=== PATIENT | male | born 1955 | race Caucasian/White ===

== ENCOUNTER 2020-01-02 21:38 | Inpatient (IN) | payer MEDICARE, BC ==
[~2020-01-02] VITALS: Ht 182.9 cm; Wt 118.0 kg
[~2020-01-02 21:38] MED LIST: ACET-2274 PO; ACET1CAP PO; ACET650S7 PR; ALBU0.63 NEB; ALBU2.5V NEB; ASCO-90 PO; DICL100G19 NS; DIPH25TA65 PO; ENOX30DI3 SQ; FAMO20TA7 PO; FLUT16SP24 NS; FLUT1DIS5 IH; FOLI0.8T2 PO; FURO-92 PO; GENT80PI6 NS; HYDR200T72 PO; IBUP-1222 PO; INSU100V5 SQ-INSULIN; IPRA3AMP30 NEB; IPRA3AMP30 NPPB; LANS15CA5 PO; LECI1200 PO; LIDO700A30 TD; LINE600I14 IV; LORA-445 PO; LORA-446 PO; LORA10TA75 PO; METF500T17 PO; OXYC-432 PO; OXYC10TA6 PO; OXYC5TAB3 PO; POTA20TA14 PO; PRED10TA PO; PRED5TAB PO; ZOLP10TA PO; [UNRECOGNIZED DRUG - OTHER] NS
[2020-01-02] MEDS ORDERED: MIDAZOLAM HCL 50 MG in SODIUM CHLORIDE 0.9% 40 ML IV PRN (21:44)
[2020-01-02] MEDS ORDERED: SODIUM CHLORIDE 0.9% 1,000ML IVBOLUS ONE (22:00)
[2020-01-02] MEDS ORDERED: MIDAZOLAM 1 MG/ML, 5ML IVPush ONE (22:00)
[2020-01-02] MEDS ORDERED: LACTATED RINGERS 1,000 ML IVBOLUS ONE (22:30)
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
[2020-01-02] MEDS ORDERED: MIDAZOLAM 1 MG/ML, 2ML ONE ×2 (22:31→23:49)
[2020-01-02] MEDS ORDERED: PIPERACILLIN/TAZO/PMX 3.375GM 50 ML ONE (22:46)
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
[2020-01-02] MEDS ORDERED: VANCOMYCIN 2,500 MG in SODIUM CHLORIDE 0.9% 500 ML IV ONE (23:00)
[2020-01-02] MEDS ORDERED: VANCOMYCIN PER PHARMACY MC ONE (23:00)
[2020-01-02] MEDS ORDERED: NOREPINEPHRINE 8 MG in SODIUM CHLORIDE 0.9% 242 ML IV PRN ×2 (23:00→23:51)
[2020-01-02] MEDS ORDERED: PIPERACILLIN/TAZO/PMX 3.375GM 50 ML IVPB ONE (23:00)
[2020-01-02] MEDS ORDERED: SODIUM CHLORIDE 0.9% 1,000 ML IV ONE (23:02)
--- NOTE | 2020-01-02 23:02 | NUR ---
EMBEDDED SYSTEMS ENGINEER REQUESTED ZOSYN, VANCO, AND VASOPRESSIN BE SENT FROM PHARMACY VIA CALL BUTTON ON PT WALL TO ROAD SIGN INSTALLER.
--- NOTE | 2020-01-02 23:27 | NUR ---
LAB CALLED CRITICAL RESULT O2 SAT OF 31% LAB TO REDRAW
[2020-01-02] MEDS ORDERED: OMNIPAQUE 350 MG/ML, 100ML BOTTLE ONE (23:34)
[2020-01-02 23:37] LABS: ALBUMIN 1.3 g/dL (3.4-5.0); ANION GAP 11 mmol/L (5-15); CHLORIDE 122 mmol/L (98-107)
[2020-01-02] MEDS ORDERED: SODIUM CHLORIDE 0.9% 1,000 ML IV SCH (23:38)
--- NOTE | 2020-01-02 23:40 | NUR ---
UNABLE TO BACK OFF VASOPRESSIN AND LEVOPHED DUE TO PT LOW B/P.
[2020-01-02 23:43] LABS: ALANINE AMINOTRANSFERASE 91 U/L (12-78); ALKALINE PHOSPHATASE 96 U/L (45-117); BILIRUBIN,TOTAL 0.5 mg/dL (0.2-1.0); CREATININE 1.14 mg/dL (0.7-1.3); TOTAL PROTEIN 3.4 g/dL (6.4-8.2)
[2020-01-02 23:44] LABS: TROPONIN I 0.488 ng/mL (0.000-0.045)
--- NOTE | 2020-01-02 23:46 | NUR ---
PT AWAITING TRANSPORT TO OR. TOOL CRIB MANAGER AND RT STANDING BED SIDE PROVIDING PT CARE. PT HAS WEAK HEART TONES VIA STETHASCOPE. PT MEDICATED PER EMAR. TOOL CRIB MANAGER WILL CONTINUE TO MONITOR PT VSS.
[2020-01-02] MEDS ORDERED: VASOPRESSIN 20 UNIT in SODIUM CHLORIDE 0.9% 99 ML IV PRN (23:51)
[2020-01-02] MEDS ORDERED: PROPOFOL 100 ML IV PRN (23:51)
[2020-01-02] MEDS ORDERED: CALCIUM CHLORIDE 10%, 10ML SYR ONE (23:57)
[2020-01-02] MEDS ORDERED: ALBUMIN HUMAN 5% 0 ML ONE (23:58)
[2020-01-03] MEDS ORDERED: GLUCAGON 1 MG IM PRN ×2
[2020-01-03] MEDS ORDERED: PHARMACY MAY ADJ FOR RENAL FX MC SCH
[2020-01-03] MEDS ORDERED: LIDOCAINE-MPF 1%, 2ML ENDO PRN
[2020-01-03] MEDS ORDERED: NOREPINEPHRINE 8 MG in SODIUM CHLORIDE 0.9% 242 ML IV PRN
[2020-01-03] MEDS ORDERED: PIPERACILLIN/TAZO/PMX 4.5GM 100 ML IVPB SCH
[2020-01-03] MEDS ORDERED: MIDAZOLAM 1 MG/ML, 2ML IVPush PRN
[2020-01-03] MEDS ORDERED: ACETAMINOPHEN 325 MG TABLET PO PRN
[2020-01-03] MEDS ORDERED: DEXTROSE 50%, 50ML SYRINGE IVPush PRN ×2
[2020-01-03] MEDS ORDERED: SENNA 176 MG/5 ML ORAL SOL NG PRN
[2020-01-03] MEDS ORDERED: FENTANYL PF 100 MCG/2ML IVPush PRN
[2020-01-03] MEDS ORDERED: CALCIUM CHLORIDE 10%, 10ML SYR IVPush ONE
[2020-01-03] MEDS ORDERED: ACETAMINOPHEN 650 MG SUPP PR PRN
[2020-01-03] MEDS ORDERED: BISACODYL 10 MG SUPP PR PRN
[2020-01-03] MEDS ORDERED: PHARMACY MAY ADJ FOR RENAL FX MC PRN
[2020-01-03] MEDS ORDERED: LACTULOSE 20 GM/30 ML UDC NG PRN
[2020-01-03] MEDS ORDERED: HEPARIN 5,000 UNITS/ML, 1ML SQ SCH
[2020-01-03] MEDS ORDERED: SODIUM CHLORIDE 0.9% 1,000ML IVBOLUS ONE
[2020-01-03] MEDS ORDERED: VANCOMYCIN PER PHARMACY MC PRN
[2020-01-03] MEDS ORDERED: DEXTROSE 4 GM TAB.CHEW PO PRN ×2
[2020-01-03] MEDS ORDERED: ONDANSETRON 2MG/ML, 2ML IVPush PRN
[2020-01-03] MEDS ORDERED: SENNA/DOCUSATE TABLET NG PRN
[2020-01-03] MEDS ORDERED: ALBUTEROL/IPRATROPIUM 2.5MG/0.5MG, 3 ML INLINE SCH
[2020-01-03 00:04] LABS: MEAN CORPUSCULAR HEMOGLOBIN 30.3 pg (27.5-34.5); MEAN CORPUSCULAR HGB CONC 31.6 g/dL (33.2-36.2); MEAN CORPUSCULAR VOLUME 95.8 fL (81-97); MEAN PLATELET VOLUME 8.4 fL (7.4-10.4); PLATELET COUNT 146 x10^3/uL (130-400); RED CELL DISTRIBUTION WIDTH 14.1 % (9.4-14.8)
[2020-01-03 00:05] LABS: MD YES
[2020-01-03 00:10] LABS: BAND#(MANUAL) 1.23 x10^3/uL; BANDS%(MANUAL) 22 % (0-7); EOS#(MANUAL) 0.11 x10^3/uL (0.0-0.4); EOS% (MANUAL) 2 % (1-7); LYMPH#(MANUAL) 0.39 x10^3/uL (1-3.4); LYMPHS% (MANUAL) 7 % (22-44); MONOS#(MANUAL) 0.28 x10^3/uL (0.3-2.7); MONOS% (MANUAL) 5 % (2-9); NRBC % (MANUAL) 2 % (0-1); SEG#(MANUAL) 3.58 x10^3/uL (1.8-6.8); SEGS% (MANUAL) 64 % (42-75)
[2020-01-03 00:11] LABS: <PLATELET ESTIMATE> ADEQUATE; ANISOCYTOSIS 1+; POLYCHROMASIA 1+
[2020-01-03 00:12] LABS: LARGE PLATELETS 1+
--- NOTE | 2020-01-03 00:13 | NUR ---
PT CARE TRANSFERED AT 7724 01/02/2020
[2020-01-03 00:14] VITALS: BP 65/43
[2020-01-03] MEDS ORDERED: CODE BLUE RESPONSE XX ONE (00:52)
[2020-01-03] MEDS ORDERED: SODIUM BICARB 8.4%, 50ML SYRINGE ONE (00:52)
[2020-01-03] MEDS ORDERED: EPINEPHRINE SYRINGE 0.1 MG/ML, 10ML ONE ×2 (00:52→10:49)
[2020-01-03] MEDS ORDERED: POTASSIUM CHLORIDE 40 MEQ in SODIUM CHLORIDE 0.9% 100 ML IV ONE (01:30)
[2020-01-03] MEDS ORDERED: INSULIN REGULAR 100 UNITS/ML, 3ML VIAL SQ-INSULIN SCH (07:00)
[2020-01-03] MEDS ORDERED: BUDESONIDE 0.5 MG/2 ML INHA NPPB SCH (09:00)
[2020-01-03] MEDS ORDERED: SODIUM CHLORIDE FLUSH 10ML SYR IVF SCH ×2 (09:00)
[2020-01-03] MEDS ORDERED: FAMOTIDINE 20 MG/2 ML IVPush SCH (09:00)
== END 2020-01-03 04:53 | disposition expired | DRG 853 ==
LOC: ED 23:10 → EDIP 23:25 → CCU 01-03 01:33
PROVIDERS: ADMIT Family Medicine; ATTEND Hospitalist
PROC: 0DJD0ZZ Inspection of Lower Intestinal Tract, Open Approach (ICD-10-PCS; principal; 2020-01-03)
PROC: 5A12012 Performance of Cardiac Output, Single, Manual (ICD-10-PCS; 2020-01-03)
PROC: 5A1935Z Respiratory Ventilation, Less than 24 Consecutive Hours (ICD-10-PCS; 2020-01-03)
DX: A41.9 Sepsis, unspecified organism (principal); J18.9 Pneumonia, unspecified organism; J96.00 Acute respiratory failure, unspecified whether with hypoxia or hypercapnia; R65.21 Severe sepsis with septic shock; E87.0 Hyperosmolality and hypernatremia; E87.2 Acidosis; J44.0 Chronic obstructive pulmonary disease with (acute) lower respiratory infection; Z99.11 Dependence on respirator [ventilator] status; B19.10 Unspecified viral hepatitis B without hepatic coma; K57.80 Diverticulitis of intestine, part unspecified, with perforation and abscess without bleeding; E11.9 Type 2 diabetes mellitus without complications; E83.51 Hypocalcemia; E87.6 Hypokalemia; F41.1 Generalized anxiety disorder; G47.33 Obstructive sleep apnea (adult) (pediatric); I10 Essential (primary) hypertension; I46.8 Cardiac arrest due to other underlying condition; I95.0 Idiopathic hypotension; K22.70 Barrett's esophagus without dysplasia; K43.5 Parastomal hernia without obstruction or gangrene; K66.0 Peritoneal adhesions (postprocedural) (postinfection); B19.20 Unspecified viral hepatitis C without hepatic coma; E66.01 Morbid (severe) obesity due to excess calories; F12.90 Cannabis use, unspecified, uncomplicated; G89.29 Other chronic pain; M06.9 Rheumatoid arthritis, unspecified; Z79.52 Long term (current) use of systemic steroids; Z82.49 Family history of ischemic heart disease and other diseases of the circulatory system; Z87.891 Personal history of nicotine dependence; Z68.35 Body mass index [BMI] 35.0-35.9, adult; Z20.828 Contact with and (suspected) exposure to other viral communicable diseases
CPT/HCPCS: 36415; 36600; 71045; 74177; 80053; 82533; 82962; 83036; 83690; 84145; 84484; 85025; 87040; 87070; 87077; 87107; 87186; 87205; 87635; 92950; 93005; 94002; 99291; J2250; P9045; Q9967; J7050; J7120